=== PATIENT | male | born 1960 | race American Indian/Alaskan Native ===

== ENCOUNTER → 2025-01-17 | Outpatient (CLI) | payer MEDICARE, MEDICAID, SELFPAY ==
--- NOTE | 2025-01-17 13:00 | XR_ITS ---
Examination: CT abdomen and pelvis without contrast. Coronal 3-D reconstructions. Sagittal 2-D reconstructions. Date and time of exam:January 17, 2025 1222 hours INDICATIONS: Left lower abdominal pain 6 months CTDI: vol (mGy): 7.24 DLP: (mGycm): 465 Technique: Axial images of the abdomen have been obtained, 3 mm slice thickness Intravenous contrast material has not been administered. Low dose protocols were performed. One or more of the following dose reduction techniques were used; automated exposure control, adjustment of the mA and/or KV according to patient size, use of iterative reconstruction technique. Findings: No focal liver or splenic lesions No gallstones No pancreatic or adrenal mass. No renal or ureteral calculi, no hydronephrosis 15 mm fat-containing umbilical hernia Normal appendix Aorta is not enlarged Colonic diverticulosis, no diverticulitis Minimal thickening of urinary bladder wall. Mild prostatomegaly Advanced disc narrowing L4-L5 IMPRESSION: 15 mm fat-containing umbilical hernia Normal appendix Colonic diverticulosis, no diverticulitis. Minimal thickening of urinary bladder wall, cystitis would be included in the differential
== END | disposition home or self-care (01) ==
PROVIDERS: Referring Provider Physician Assistant; Visit Provider Physician Assistant
DX: K42.9 Umbilical hernia without obstruction or gangrene (principal); K57.30 Diverticulosis of large intestine without perforation or abscess without bleeding; N32.89 Other specified disorders of bladder; Z98.890 Other specified postprocedural states
CPT/HCPCS: 74176